=== PATIENT | male | born 1955 | race Caucasian/White ===

== ENCOUNTER → 2018-11-06 | Day surgery (SDC) | payer OTHER | LOC: MSO 09:00 | DX: H25.89 Other age-related cataract (principal); J44.9 Chronic obstructive pulmonary disease, unspecified; F17.200 Nicotine dependence, unspecified, uncomplicated | CPT/HCPCS: 00142; A9270-GY; J0171; J2250; J3010; V2632 ==

== ENCOUNTER → 2018-11-06 | Day surgery (SDC) | payer MEDICARE | LOC: MSO 08:26 → EDSTATUS 08:40 | DX: H25.12 Age-related nuclear cataract, left eye (principal); J44.9 Chronic obstructive pulmonary disease, unspecified; F17.210 Nicotine dependence, cigarettes, uncomplicated; Z79.82 Long term (current) use of aspirin ==

== ENCOUNTER → 2019-04-02 | Day surgery (SDC) | payer MEDICARE | LOC: MSO 08:54 | DX: H26.9 Unspecified cataract (principal) | CPT/HCPCS: 00142; A9270-GY; J0171; J2250; J3010; V2632 ==

== ENCOUNTER → 2021-02-21 | Day surgery (SDC) | payer MEDICARE | LOC: MSO 07:57 | DX: C15.3 Malignant neoplasm of upper third of esophagus (principal); J43.9 Emphysema, unspecified; F17.210 Nicotine dependence, cigarettes, uncomplicated; Z79.82 Long term (current) use of aspirin | CPT/HCPCS: 00731; 00812; J2704; J7120 ==

== ENCOUNTER → 2021-02-24 | Outpatient (CLI) | payer MEDICARE ==
[2021-02-24 09:15] LABS: HEMATOCRIT 38.5 % (42.0-52.0); HEMOGLOBIN 12.6 g/dL (13.5-18.0); MEAN PLATELET VOLUME 9.8 fl (7.4-10.4); RED BLOOD COUNT 3.88 M/mm3 (4.20-5.60); RED CELL DISTRIBUTION WIDTH 14.9 % (11.5-14.5); WHITE BLOOD COUNT 6.2 K/mm3 (4.8-10.8)
[2021-02-24 09:23] LABS: ALBUMIN 3.7 g/dL (3.4-4.8); POTASSIUM 4.4 mmol/L (3.5-5.1)
[2021-02-24 09:24] LABS: CALCIUM 8.8 mg/dL (8.3-10.5)
[2021-02-24 09:25] LABS: TOTAL PROTEIN 6.9 g/dL (6.2-8.1)
[2021-02-24 09:27] LABS: TOTAL BILIRUBIN 0.3 mg/dL (0.2-1.2)
== END ==
LOC: RAD 08:30
PROVIDERS: Surgery
DX: C15.9 Malignant neoplasm of esophagus, unspecified (principal); J43.9 Emphysema, unspecified; I25.10 Atherosclerotic heart disease of native coronary artery without angina pectoris; I77.810 Thoracic aortic ectasia
CPT/HCPCS: Q9967

== ENCOUNTER → 2021-05-23 | Outpatient (CLI) | payer MEDICARE ==
[2021-05-23 11:49] LABS: URINE APPEARANCE CLOUDY; URINE BILIRUBIN NEGATIVE (NEGATIVE); URINE BLOOD 250 ery/uL (NEGATIVE); URINE COLOR YELLOW; URINE GLUCOSE NEGATIVE (NEGATIVE); URINE KETONE NEGATIVE (NEGATIVE); URINE LEUKOCYTE ESTERASE TRACE (NEGATIVE); URINE NITRATE NEGATIVE (NEGATIVE); URINE PROTEIN(semi-quant) 2+ mg/dL (NEGATIVE); URINE UROBILINOGEN NORMAL (NORMAL)
== END ==
LOC: LAB 10:47
PROVIDERS: Internal Medicine
DX: R30.9 Painful micturition, unspecified (principal)

== ENCOUNTER → 2021-09-12 | Day surgery (SDC) | payer MEDICARE | END | disposition home or self-care (01) | LOC: MSO 09:14 | DX: C15.9 Malignant neoplasm of esophagus, unspecified (principal); J43.9 Emphysema, unspecified; K22.2 Esophageal obstruction; F17.210 Nicotine dependence, cigarettes, uncomplicated; Z92.3 Personal history of irradiation; Z79.82 Long term (current) use of aspirin; Z79.899 Other long term (current) drug therapy; Z92.21 Personal history of antineoplastic chemotherapy | CPT/HCPCS: 00731; J2704; J7120 ==

== ENCOUNTER 2022-03-08 16:40 | Observation (INO) | payer MEDICARE ==
[~2022-03-08] VITALS: Ht 175.3 cm; Wt 49.0 kg
[2022-03-08] MEDS ORDERED: VAZALORE325 MG PO (17:05)
[2022-03-08] MEDS ORDERED: TYLENOL 325MG325 MG PO (17:05)
[2022-03-08 17:11] LABS: BASO # 0.04 K/mm3 (0.02-0.10); EOS # 0.04 K/mm3 (0.04-0.40); EOS % 0.6 % (0.0-4.0); HEMATOCRIT 40.6 % (42.0-52.0); HEMOGLOBIN 13.5 g/dL (13.5-18.0); LYMPH# 1.35 K/mm3 (1.50-4.00); MEAN CELL VOLUME 103 fl (78-100); MEAN CORPUSCULAR HEMOGLOBIN 34 pg (27-31); MEAN CORPUSCULAR HGB CONC 33 g/dL (33-37); MEAN PLATELET VOLUME 9.6 fl (7.4-10.4); MONO # 0.67 K/mm3 (0.20-0.80); NEU # 5.14 K/mm3 (1.40-6.50); PLATELET COUNT 322 K/mm3 (130-400); RED BLOOD COUNT 3.95 M/mm3 (4.20-5.60); RED CELL DISTRIBUTION WIDTH 14.6 % (11.5-14.5); WHITE BLOOD COUNT 7.3 K/mm3 (4.8-10.8)
[2022-03-08 17:18] LABS: ALBUMIN 4.6 g/dL (3.4-4.8); POTASSIUM 3.8 mmol/L (3.5-5.1); SODIUM 146 mmol/L (136-145)
[2022-03-08 17:19] LABS: CALCIUM 10.3 mg/dL (8.3-10.5)
[2022-03-08 17:20] LABS: GLUCOSE 87 mg/dL (75-110); PROTHROMBIN TIME 10.1 SECONDS (9.0-12.0); TOTAL PROTEIN 7.8 g/dL (6.2-8.1)
[2022-03-08 17:22] LABS: TOTAL BILIRUBIN 0.6 mg/dL (0.2-1.2)
[2022-03-08 17:27] LABS: ALT/SGPT 9 U/L (0-55)
[2022-03-08 17:36] LABS: AST-SGOT 21 U/L (5-34)
[2022-03-08 17:43] LABS: ALCOHOL IN-HOUSE < 10 mg/dL (<10); CARBON DIOXIDE 14 mmol/L (23-31)
[2022-03-08 18:13] LABS: LIPASE 16 U/L (8-78)
[2022-03-08 18:17] LABS: URINE APPEARANCE HAZY; URINE COLOR YELLOW
[2022-03-08 18:18] LABS: URINE BILIRUBIN 2+ (NEGATIVE); URINE BLOOD 250 ery/uL (NEGATIVE); URINE GLUCOSE NEGATIVE (NEGATIVE); URINE KETONE 3+ (NEGATIVE); URINE LEUKOCYTE ESTERASE 1+ (NEGATIVE); URINE MUCUS PRESENT (NOT PRESENT); URINE NITRATE NEGATIVE (NEGATIVE); URINE PROTEIN(semi-quant) 1+ (NEGATIVE); URINE UROBILINOGEN NORMAL (NORMAL); URINE WBC 16-30 /hpf (0-3)
[2022-03-08 18:20] LABS: TROPONIN-I < 0.030 ng/mL (<0.030)
[2022-03-08 22:00] VITALS: BP 133/75
[2022-03-09 06:02] VITALS: BP 110/62
[2022-03-09 06:46] LABS: BASO # 0.02 K/mm3 (0.02-0.10); EOS # 0.15 K/mm3 (0.04-0.40); EOS % 3.2 % (0.0-4.0); HEMATOCRIT 29.9 % (42.0-52.0); HEMOGLOBIN 10.2 g/dL (13.5-18.0); LYMPH# 0.82 K/mm3 (1.50-4.00); MEAN CELL VOLUME 102 fl (78-100); MEAN CORPUSCULAR HEMOGLOBIN 35 pg (27-31); MEAN CORPUSCULAR HGB CONC 34 g/dL (33-37); MEAN PLATELET VOLUME 9.6 fl (7.4-10.4); MONO # 0.49 K/mm3 (0.20-0.80); NEU # 3.27 K/mm3 (1.40-6.50); PLATELET COUNT 231 K/mm3 (130-400); RED BLOOD COUNT 2.94 M/mm3 (4.20-5.60); RED CELL DISTRIBUTION WIDTH 14.8 % (11.5-14.5); WHITE BLOOD COUNT 4.8 K/mm3 (4.8-10.8)
[2022-03-09 06:50] LABS: POTASSIUM 3.5 mmol/L (3.5-5.1)
[2022-03-09 06:51] LABS: CALCIUM 8.6 mg/dL (8.3-10.5)
[2022-03-09 11:08] VITALS: BP 114/64
[2022-03-09] MEDS ORDERED: PROTONIX TR40 M1 PO (11:44)
== END 2022-03-09 12:30 | disposition home or self-care (01) ==
LOC: ED 16:40 → MED/SURG 21:33
PROVIDERS: ADMIT Physician Assistant
DX: K22.2 Esophageal obstruction (principal); E46 Unspecified protein-calorie malnutrition; C15.9 Malignant neoplasm of esophagus, unspecified; N39.0 Urinary tract infection, site not specified; J18.1 Lobar pneumonia, unspecified organism; R04.2 Hemoptysis; E87.0 Hyperosmolality and hypernatremia; E87.2 Acidosis; E86.0 Dehydration; F17.210 Nicotine dependence, cigarettes, uncomplicated; Z79.899 Other long term (current) drug therapy; Z20.822 Contact with and (suspected) exposure to COVID-19
CPT/HCPCS: 00731; C1726; C9113; G0378; J1956; J2704; J7030; J7120; Q9967